=== PATIENT | male | born 1975 | race Two or more races ===

== ENCOUNTER 2023-09-05 13:25 | Outpatient (AMB) | payer MEDICAID, SELFPAY ==
--- NOTE | 2023-09-05 13:31 | A.OFFVIS_ITS ---
Vital Signs 09/05/23 13:40 Height 5 ft 11 in Weight 229 lb 4.492 oz BMI 32.0 BP 98/72 Blood Pressure Location Rt brachial Position Sitting Pulse 110 H Pulse Source Pulse Oximeter Pulse Oximetry (%) 96 Oxygen Delivery Method Room Air Intake Visit Reasons: Colonoscopy screening Intake Note: Gonzalez presents in office today for colo scrn. CC; Pt denies any significant sx or concerns regarding the colo scrn. Pt states that their PCP recommended the colo scrn. Pt is admittedly very nervous about this appointment and the possible procedure. 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 male with past medical history of diabetes, asthma, hypercholesteremia, hypertension is here today for pre colonoscopy screening.? Patient was sent to us by his PCP.? This is his first colonoscopy screening.? Patient denies any gastrointestinal symptoms in the past or at present.? Denies any personal or family history of gastrointestinal disease, colon polyps, or CRC.? Denies history of difficulty with sedation or anesthesia in the past.? Negative for history of sleep apnea.? Denies any history of cardiac, renal, pulmonary, or hepatic disease.?? No history of infectious? diseases like hepatitis A, B, C, HIV, however patient reports that history of tuberculosis at age of [age] years old.? Patient is on low-dose aspirin [facility] Medical History Shoulder pain with history of repair of rotator cuff Surgical History History of knee surgery Review of Systems Const Denies weight gain and Denies weight loss ENT Reports no additional complaints, Denies dysphagia and Denies odynophagia Card Reports no additional complaints Resp Reports no additional complaints GI Denies abdominal pain, Denies belching, Denies melena, Denies bloating, Denies change in bowel habits, Denies dysphagia, Denies excessive flatus, Denies dyspepsia, Denies heartburn, Denies diarrhea, Denies loose stools, Denies nausea, Denies odynophagia and Denies vomiting Reports no additional complaints Musc Reports no additional complaints Neuro Reports no additional complaints Psych Reports no additional complaints Endo Reports no additional complaints Physical Exam Vital Signs: Last Vital Signs Pulse 110 H 09/05/23 13:40 BP 98/72 09/05/23 13:40 Pulse Ox 96 09/05/23 13:40 Oxygen Delivery Method Room Air 09/05/23 13:40 BMI result Body Mass Index 32.0 Const General: healthy appearing and no acute distress Nutritional Appearance: obese Orientation/consciousness: patient oriented x3 Resp Effort & Inspection: normal respiratory effort, able to speak in complete sentences, no tracheal deviation and symmetric chest movement Auscultation: clear to auscultation bilaterally Cardio Rate: regular rate GI Inspection: Yes normal to inspection, No distended and Yes obesity Palpation (GI): Soft to palpation, not firm, nontender and No hepatosplenomegaly present Auscultation: normal bowel sounds General: Yes no CVA tenderness Back/Spine/Pelvis Back: no CVA tenderness Skin General skin exam: elasticity normal, turgor normal and dry skin Neuro General: patient oriented x3 Psych Appearance: grossly normal Mental Status: mental status grossly normal Assessment & Plan Assessment & Plan (1) Screen for colon cancer: Code(s): Z12.11 - Encounter for screening for malignant neoplasm of colon Plan Patient denies any GI, cardiac or respiratory symptoms.? Denies any issues with anesthesia in the past.? Denies any history of sleep apnea.? ? On low-dose aspirin..? No family or personal history of colon cancer or polyps.? Patient denies melena, hematochezia, unintentional weight loss or ribbon like stools.? Discussed at length the pre-procedure,? prep, diet & medications as well as what to expect prior, during and after the procedure.?? Stressed the importance of good bowel prep.? Recommended the use of Vaseline or Calmoseptine OTC & baby wipes with bowel movements to promote comfort.? ?Patient verbalizes understanding and agrees to plan of care.? He was given the opportunity to ask questions and all questions answered.? We will see him after the procedure.? Medications: New polyethylene glycol 3350 (Miralax) As directed by gastroenterology department at [facility] 238 grams PO ONCE 238 grams 0RF Z12.11 - Encounter for screening for malignant neoplasm of colon bisacodyl (Dulcolax (bisacodyl)) take 4 tabs at noon the day before your colonoscopy 20 mg (4 x 5 mg) PO ONCE 1 day 4 tabs 0RF Z12.11 - Encounter for screening for malignant neoplasm of colon Coding Level of Care Code New Pt Level 3 (40608) Diagnoses Screen for colon cancer Z12.11 Time Spent (min) 40 Comment 30 minutes spent with patient and additional 10 minutes spent reviewing his records
[2023-09-05 13:40] VITALS: BP 98/72; PULSE 110; O2SAT 96; BMI 32.0
== END 2023-09-05 15:03 | disposition home or self-care (01) ==
PROVIDERS: PCP Internal Medicine; Visit Provider Nurse Practitioner Family
DX: Z12.11 Encounter for screening for malignant neoplasm of colon (principal); Z01.818 Encounter for other preprocedural examination
CPT/HCPCS: 99203

== ENCOUNTER → 2023-09-05 13:25 | Outpatient (BNVA) | payer MEDICAID, SELFPAY | PROVIDERS: PCP Internal Medicine; Visit Provider Nurse Practitioner Family | DX: Z12.11 Encounter for screening for malignant neoplasm of colon (principal) | CPT/HCPCS: 99212 ==

== ENCOUNTER 2023-10-11 09:35 | Outpatient (REF) | payer MEDICAID, SELFPAY ==
[2023-10-11 15:04] LABS: Estimated Average Glucose 197 mg/dL; Hemoglobin A1c % 8.5 % (<6.0)
[2023-10-11 15:11] LABS: Alanine Aminotransferase 34 U/L (0-40); Albumin Level 4.5 g/dL (3.5-5.0); Alkaline Phosphatase 46 U/L (39-117); Anion Gap 13 (12-20); Aspartate Amino Transferase 31 U/L (5-37); Bilirubin Total 0.6 mg/dL (0.0-1.0); Blood Urea Nitrogen 13 mg/dL (9-16); Calcium 9.4 mg/dL (8.4-10.2); Carbon Dioxide 23 mmol/L (22-29); Chloride 105 mmol/L (96-108); Cholesterol 147 mg/dL (<200); Estimated Glomerular Filt Rate > 60; Glucose Random 109 mg/dL (60-115); HDL Cholesterol 42 mg/dL (>40); LDL Cholesterol Calculated 88 mg/dL (<100); Potassium 3.7 mmol/L (3.3-5.1); Sodium 137 mmol/L (135-145); Total Protein 7.2 g/dL (6.5-8.0); Triglycerides 88 mg/dL (<150)
[2023-10-12 08:18] LABS: ~HepC Num1 0.12 S/CO (0.00-0.79); ~Hepatitis C Antibody Nonreactive (Nonreactive)
[2023-10-14 18:04] LABS: HIV RNA PCR Qn Copies Not Detected Copies/mL; HIV RNA PCR Qn Log Copies Not Detected Log cps/mL
== END 2023-10-11 09:36 | disposition home or self-care (01) ==
LOC: HO.CHCLDS 09:35
PROVIDERS: Visit Provider Internal Medicine
DX: I10 Essential (primary) hypertension (principal); E78.5 Hyperlipidemia, unspecified; E11.69 Type 2 diabetes mellitus with other specified complication
CPT/HCPCS: 36415; 80053; 80061; 83036; 86803; 87536; 87900

== ENCOUNTER 2024-02-05 08:44 | Day surgery (SDC) | payer MEDICAID, SELFPAY ==
--- NOTE | 2024-02-05 09:31 | MHC.SHP ---
Pre-Procedural Eval Section A - 24 Hr Update-Section A only Date of Service: 02/05/24 Section B - Complete if H&P > 30 days Chief Complaint: screening Details of Present Illness: Medical History Shoulder pain with history of repair of rotator cuff Surgical History History of knee surgery Present Medications: see Short Stay Collaborative assessment Allergies: Allergies Allergy/AdvReac Type Severity Reaction Status Date / Time No Known Allergies Allergy Verified 09/05/23 13:37 Review of Systems Review of Systems Comment: Ten point ROS negative Exam Exam Comment: Gen appear: No acute distress HEENT: no icterus Chest: No overt resp distress Abd: soft, nontender, nondistended Psych: Stable affect, answering questions appropriately Neuro: A/Ox3 noted to move all extremities spontaneously Ext: no peripheral edema Plan Diagnosis/Plan: Unchanged I have reviewed the history and physical and performed a pertinent physical examination on my patient. No changes have occurred unless specified. Time Spent With Patient Time: Total time managing care of this patient today ____ minutes.
[2024-02-05 09:38] VITALS: BMI 33.2
[2024-02-05 09:57] LABS: Glucose, Whole Blood 188 mg/dL (60-115)
--- NOTE | 2024-02-05 10:00 | HO.ANESPROP2 ---
Documented by User: Olamide Ahuja NP 02/04/24 09:31 HPI - Anesthesia Eval Consult details Narrative: 48yo M for Colonoscopy Anesthesia Pre-Procedure Meds Is the patient on any of the following meds?: SGLT2 Inhib PMFSH Past Medical History Medical History Hypercholesteremia Diabetes HTN (hypertension) Asthma Shoulder pain with history of repair of rotator cuff Surgical History Surgical History History of knee surgery Social History Social History Are you a primary acute care physician to a significant other at home: No Do you presently have visiting nurse or other home services: No Patient Tobacco Use Status: Current everyday Tobacco user Tobacco use type: Cigarette Smoked in Last 30 Days: Yes Patient Interested in Nicotine Replacement: No Have you been hit, kicked, punched, or otherwise hurt by someone within the past year? If so, by whom?: No Are you DNR?: No Advance Directives: No Advance Directives Information Provided: Yes Recently lost weight without trying: No Nutrition Risks: No Nutritional Risk Meds Allergies Allergy/AdvReac Type Severity Reaction Status Date / Time No Known Allergies Allergy Verified 02/05/24 09:39 Home Medications ?Medication ?Instructions ?Recorded ?Confirmed ?Last Taken ?Type albuterol sulfate 90 mcg/actuation 2 puff inhalation Q6H PRN wheezing 09/05/23 02/05/24 Unknown History aerosol inhaler (Ventolin HFA) aspirin 81 mg tablet,delayed 81 mg PO QAM 09/05/23 02/05/24 02/01/24 History release atorvastatin 20 mg tablet 20 mg PO DAILY 09/05/23 Unknown History blood sugar diagnostic (FreeStyle #10 ea 09/05/23 Unknown History Lite Strips) empagliflozin 25 mg tablet 25 mg PO QAM 09/05/23 02/05/24 02/01/24 History (Jardiance) hydroxyzine HCl 25 mg tablet 25 mg PO TID PRN itch 09/05/23 Unknown History lisinopril 20 mg tablet 20 mg PO DAILY 09/05/23 Unknown History metformin 1,000 mg tablet 1,000 mg PO 09/05/23 Unknown History vitamin B complex-folic acid 0.4 1 tab PO DAILY 09/05/23 Unknown History mg tablet Assessment and Plan Assessment Anesthesia Assessment: Chart Reviewed Documented by User: Yaritza Vazquez DO 02/05/24 10:06 HPI - Anesthesia Eval Consult details Narrative: 48yo M for Colonoscopy. Smoker. Anesthesia Pre-Procedure Meds Is the patient on any of the following meds?: SGLT2 Inhib PMFSH Past Medical History Medical History Hypercholesteremia Diabetes HTN (hypertension) Asthma Shoulder pain with history of repair of rotator cuff Family History Family history of problems with anesthesia: No Surgical History Surgical History History of knee surgery History of Problems with Anesthesia: No Social History Social History Are you a primary acute care physician to a significant other at home: No Do you presently have visiting nurse or other home services: No Patient Tobacco Use Status: Current everyday Tobacco user Tobacco use type: Cigarette Smoked in Last 30 Days: Yes Patient Interested in Nicotine Replacement: No Have you been hit, kicked, punched, or otherwise hurt by someone within the past year? If so, by whom?: No Are you DNR?: No Advance Directives: No Advance Directives Information Provided: Yes Recently lost weight without trying: No Nutrition Risks: No Nutritional Risk Meds Allergies Allergy/AdvReac Type Severity Reaction Status Date / Time No Known Allergies Allergy Verified 02/05/24 09:39 Home Medications ?Medication ?Instructions ?Recorded ?Confirmed ?Last Taken ?Type albuterol sulfate 90 mcg/actuation 2 puff inhalation Q6H PRN wheezing 09/05/23 02/05/24 Unknown History aerosol inhaler (Ventolin HFA) aspirin 81 mg tablet,delayed 81 mg PO QAM 09/05/23 02/05/24 02/01/24 History release atorvastatin 20 mg tablet 20 mg PO DAILY 09/05/23 Unknown History blood sugar diagnostic (FreeStyle #10 ea 09/05/23 Unknown History Lite Strips) empagliflozin 25 mg tablet 25 mg PO QAM 09/05/23 02/05/24 02/01/24 History (Jardiance) hydroxyzine HCl 25 mg tablet 25 mg PO TID PRN itch 09/05/23 Unknown History lisinopril 20 mg tablet 20 mg PO DAILY 09/05/23 Unknown History metformin 1,000 mg tablet 1,000 mg PO 09/05/23 Unknown History vitamin B complex-folic acid 0.4 1 tab PO DAILY 09/05/23 Unknown History mg tablet Exam Exam Date and Time: 02/05/24 1000 Height,Weight and Vital Signs: Height 5 ft 11 in Weight 107.955 kg Airway Mallampati Class: III TM Dist: >3cm Neck ROM: Full Loose/Missing/Broken Teeth: Yes (broken/missing upper left front incisor) Heart: S1S2 Lungs: CTAB Assessment and Plan Assessment Anesthesia Assessment: Anesthesia Plan Discussed and Chart Reviewed Final Anesthetic Review Family History of Problems with Anesthesia: No History of Problems with Anesthesia: No NPO: Yes ASA Class: III Final Preanesthetic Review: No Changes in Pt Med Stat, Meds/Allgs Chart Reviewed, Consent Obtained/Reviewed and Anes Risks/Benef Reviewed Patient Risk: Intermediate Procedure Risk: Low Anesthetic Plan Anesthetic Plan: MAC: and Agree w/ Assess. and Plan Disposition: Standard PACU
[2024-02-05] MEDS: Lactated Ringers 1,000 ML 100 ML IVCONT (10:04)
[2024-02-05 10:05] VITALS: BP 143/97; PULSE 76; RESP 18; TEMP 36.7; O2SAT 98
--- NOTE | 2024-02-05 10:24 | P.OPN-COLO_ITS ---
Colonoscopy Operative Note Operative Note Date of Service: 02/05/24 Narrative: Procedure: Colonoscopy Indication: Screening Endoscopist: Angelica Ruiz MD Anesthesia Provider: Fabiola Leach CRNA Anesthesia type: MAC Instrument: Olympus [id number]-[id number] Consent: Indication, risks vs benefits, and alternatives were discussed with the patient who gave written informed consent to proceed. EKG, pulse, pulse oximetry and blood pressure were monitored throughout the procedure. Please see anesthesia flowsheet. Procedure: The patient was brought to the procedure room and placed in the left lateral decubitus position. IV medications were administered by the anesthesia provider in attendance. A digital rectal exam was performed which was normal. A distal attachment cap was affixed to the tip of the colonoscope which was then inserted through the anus and advanced through the colon to the cecum at 75 cm,and terminal ileum. Appendiceal orifice and ileocecal valve were identified. Mucosa was carefully examined under high definition white light as the instrument was slowly withdrawn in a retrograde panoramic fashion. Retroflexion was performed in ascending colon and rectum. The procedure was not difficult. There were no immediate obvious complications. The quality of the prep was BBPS: 2+3+2 = adequate Withdrawal time 7 minutes. Limitations: No limitations. Findings: Mucosa: Normal to cecum and terminal ileum. Protruding lesions: * Medium internal hemorrhoids without stigmata of recent bleeding. Impression: 1. Normal colon and terminal ileum mucosa 2. Internal hemorrhoids Recommendations: - Repeat colonoscopy for asymptomatic colorectal cancer screening in 10 years
[2024-02-05 10:27] VITALS: BP 122/73; PULSE 88; RESP 16; TEMP 36.4; O2SAT 97
[2024-02-05 10:42] VITALS: BP 136/90; PULSE 80; RESP 16; TEMP 36.4; O2SAT 96
== END 2024-02-05 11:04 | disposition home or self-care (01) ==
PROVIDERS: Visit Provider Internal Medicine
PROC: 0DJD8ZZ Inspection of Lower Intestinal Tract, Via Natural or Artificial Opening Endoscopic (ICD-10-PCS; CPT 45378; principal; 2024-02-05 11:30)
DX: Z12.11 Encounter for screening for malignant neoplasm of colon (principal); K64.8 Other hemorrhoids; E11.9 Type 2 diabetes mellitus without complications; I10 Essential (primary) hypertension; E78.00 Pure hypercholesterolemia, unspecified; J45.909 Unspecified asthma, uncomplicated
CPT/HCPCS: 45378; 82947; J2003; J2250; J2704

== ENCOUNTER → 2024-02-05 08:44 | Outpatient (BNV) | payer MEDICAID, SELFPAY | PROVIDERS: Visit Provider Internal Medicine | DX: Z12.11 Encounter for screening for malignant neoplasm of colon (principal); K64.8 Other hemorrhoids | CPT/HCPCS: 45378 ==